=== PATIENT | male | born 1980 | race Caucasian/White ===

== ENCOUNTER 2020-09-03 13:16 | Outpatient (REF) | payer MEDICAID, SELFPAY | END 2020-09-03 13:17 | disposition home or self-care (01) | LOC: HO.LAB 13:16 | PROVIDERS: Visit Provider Internal Medicine | DX: Z20.828 Contact with and (suspected) exposure to other viral communicable diseases (principal) | CPT/HCPCS: U0003 ==

== ENCOUNTER 2020-09-09 09:51 | Outpatient (REF) | payer MEDICAID, SELFPAY | END 2020-09-09 09:52 | disposition home or self-care (01) | LOC: HO.LAB 09:51 | PROVIDERS: Visit Provider Internal Medicine | DX: Z20.828 Contact with and (suspected) exposure to other viral communicable diseases (principal) | CPT/HCPCS: C9803; U0003 ==

== ENCOUNTER 2020-09-16 08:58 | Outpatient (REF) | payer MEDICAID, SELFPAY | END 2020-09-16 08:59 | disposition home or self-care (01) | LOC: HO.LAB 08:58 | PROVIDERS: Visit Provider Internal Medicine | DX: Z20.828 Contact with and (suspected) exposure to other viral communicable diseases (principal) | CPT/HCPCS: C9803; U0003 ==

== ENCOUNTER 2020-10-08 14:20 | Emergency (ER) | payer MEDICAID, SELFPAY ==
[2020-10-08 14:35] VITALS: BP 132/58; PULSE 93; RESP 18; TEMP 36.7; O2SAT 99; BMI 39.0
--- NOTE | 2020-10-08 14:49 | ED_ITS ---
HPI - General Adult General Chief complaint: Extremity Injury, Lower Stated complaint: PROBLEMS WITH VEINS IN LEGS Time Seen by Provider: 10/08/20 14:47 Source: patient Mode of arrival: ambulatory Limitations: no limitations History of Present Illness HPI narrative: 40 y/o male with history of varicose veins, depression, hx back pain, hx substance abuse presents with acute on chronic LE pain. He reports he is followed by a Vascular Surgeon at [facility]. He reports for the last week he has had severe left thigh cramping that wakes him up at night and had him rolling around on the floor. He also reports left Achilles tendon pain, denies trauma. He had ultrasound of the leg ?2 months ago per his report. He is not on diuretics and denies N/V/D. He report significant weight gain in the last year, >100lbs since being started on a new antidepressant. MD complaint: leg pain Onset (ago): week(s) Location: lower extremity Radiation: non-radiation Severity: severe Severity scale (1-10): 10 Quality: burning and aching Pain Consistency: intermittent Relieving factors: none Exacerbating factors: rest (only occurs at night, severe cramping of upper leg) Associated symptoms: denies other symptoms Treatments prior to arrival: none Related Data Allergies Allergy/AdvReac Type Severity Reaction Status Date / Time trazodone [TRAZODONE] Allergy Unknown SWELLING Unverified 07/22/20 15:15 Review of Systems Review of Systems: Constitutional: No Fever, No Chills ENT/Mouth: No sore throat, No Rhinorrhea, No Swallowing Difficulty Eyes: No Eye Pain, No Swelling, No Redness Cardiovascular: No Chest Pain, No SOB, No Orthopnea, +Edema Respiratory: No Cough, No Sputum, No Wheezing, + dyspnea (x months due to weight gain) Gastrointestinal: No Nausea, No Vomiting, No Diarrhea, No abdominal Pain Genitourinary: No Dysuria, No Urinary Frequency, No Hematuria Musculoskeletal: + joint pain, + Myalgias Skin:+o Skin Lesions, No rash Neuro: No Weakness, No Numbness, No Dizziness, No Headache Psych: + Anxiety/Panic, + Depression Heme/Lymph: No Bruising, No Lymphadenopathy Endocrine: No Polyuria, No Polydipsia PMFSH Past Medical History Attestation statement: The following information was validated with the patient. Medical History (Updated 10/08/20 @ 17:44 by LONNIE Leung) Depression Obesity Varicose veins of both lower extremities Social History Social History Advance Directives: No Advance Directives Information Provided: Yes Physical Exam Vital Signs: Vital Signs: Last Vital Signs Temp 98.0 F 10/08/20 14:35 Pulse 93 10/08/20 14:35 Resp 18 10/08/20 14:35 BP 132/58 L 10/08/20 14:35 Pulse Ox 99 10/08/20 14:35 Body Mass Index 39.0 Appearance: Alert. Oriented X3. No acute distress. Eyes: Pupils equal, round and reactive to light. ENT: Pharynx normal. Neck: Normal inspection. Neck supple. CVS: Normal heart rate and rhythm. Pulses normal. Respiratory: No respiratory distress. Breath sounds normal. Abdomen: Obese, Soft and nontender. +BS x4 Skin: Skin warm and dry. Extremities: 1+ LE edema, small superficial varicose veins of bilateral lower legs, left leg with tenderness over veins, tender quadriceps muscle, tender Achilles tendon, negative Galvan's test Neuro: Oriented X 3. No motor deficit. No sensory deficit. Course Course Course Narrative: 40 y/o male with acute on chronic leg pain and muscle cramping. Will assess for metabolic derrangement, dehydration and DVT. Reevaluation(s) Reevaluation #1: LE doppler: 1. No DVT demonstrated in the left lower extremity 2. Varicose veins calf. No superficial thrombophlebitis. Labs pending. Reevaluation #2: Labs unremarkable, mild dehydration with BUN 18. This could be the cause of his muscle cramping. He was counseled on this and importance of increasing fluid intake. He will f/u with PCP and vascular. Stable for d/c. Medical Decision Making Lab Data Result diagrams: 10/08/20 16:53 10/08/20 16:53 Labs: Lab Results 10/08/20 10/08/20 Range/Units 16:53 16:53 WBC 11.7 H (4.8-10.8) X10*3/uL RBC 4.82 (4.60-5.80) X10*6/uL Hgb 13.6 L (14.0-18.0) g/dl Hct 42.4 (42-52) % MCV 88.0 (80-98) fL MCH 28.2 (27.0-33.0) pg MCHC 32.1 (31.0-36.0) g/dl RDW 12.1 (11.0-16.0) % Plt Count 343 (160-400) X10*3/uL MPV 8.9 L (9.4-12.4) fL Immature Gran % (Auto) 0.3 (0.0-0.4) % Neut % (Auto) 67.1 (45-73) % Lymph % (Auto) 24.0 (20-40) % [place] % (Auto) 6.2 (2-11) % Eos % (Auto) 1.7 (0-4) % Baso % (Auto) 0.7 (0-2) % Lymph # (Auto) 2.8 (1.2-4.9) X10*3/uL [place] # (Auto) 0.7 (0.1-1.2) X10*3/uL Eos # (Auto) 0.2 (0.0-0.4) X10*3/uL Baso # (Auto) 0.1 (0.0-0.2) X10*3/uL Abs Immat Gran (auto) 0.04 H (0.00-0.03) X10*3/uL Absolute Neuts (auto) 7.9 (2.0-8.3) X10*3/uL Absolute Nucleated RBC 0.000 (0.0-0.012) X10*3/uL Nucleated RBC % (auto) 0.0 (0.0-0.2) /100WBC Sodium 138 (135-145) mmol/L Potassium 4.9 (3.3-5.1) mmol/l Chloride 103 (96-108) mmol/L Carbon Dioxide 27 (22-29) mmol/L Anion Gap 13 (12-20) BUN 18 H (9-16) mg/dL Creatinine 0.80 (0.5-1.4) mg/dL Estim Creat Clear Calc 164.9 Estimated GFR > 60 Random Glucose 95 (60-115) mg/dL Calcium 9.9 (8.4-10.2) mg/dL Magnesium 2.0 (1.6-2.6) mg/dL Total Creatine Kinase 87 (38-174) U/L TSH 0.43 (0.32-4.0) mIU/mL Critical Care Time Critical Care Time Critical Care Time: No Discharge Plan Discharge Clinical Impression: Cramp in muscle, Dehydration Varicose veins of both lower extremities Qualifiers: Varicose vein complication: pain Qualified Code(s): I83.813 - Varicose veins of bilateral lower extremities with pain Patient Disposition: Home, Self-Care Instructions: Dehydration (ED), Leg Cramps (ED) Additional Instructions: Your labs today showed mild dehydration, recommend increasing your water intake throughout the day. All of your electrolytes were normal as well as your thyroid hormone. Ultrasound of your leg did not show any deep clots. Tonic water can help with muscle cramping, try drinking this before bed. Follow up with your doctor as well as your Vascular Surgeon.
--- NOTE | 2020-10-08 15:00 | US_ITS ---
EXAMINATION: US VENOUS ULTRASOUND WITH DOPPLER LOWER EXTREMITY, LEFT CLINICAL INFORMATION: Painful varicose veins, or edema. Assess for occult DVT. COMPARISON: None TECHNIQUE: Ultrasound of the deep veins is performed from the hip to the calf with compression sonography and color and pulse Doppler assessment. Spectral analysis with color-flow imaging is performed. FINDINGS: There is normal venous compression and respiratory variation and augmented flow. The visualized common femoral vein, superficial femoral vein, profunda femoral vein, popliteal vein, and the trifurcation region shows no evidence of deep venous thrombosis. There is no popliteal fossa cyst. There are varicose veins demonstrated in the medial calf. These are compressible and show intraluminal color flow. No superficial thrombophlebitis. No localized edema tracking in soft tissue planes. Incidental inguinal node present with normal alma architecture and short axis dimension 0.8 cm. US/US venous duplex LE IMPRESSION: 1. No DVT demonstrated in the left lower extremity. 2. Varicose veins calf. No superficial thrombophlebitis.
[2020-10-08 16:00] VITALS: PULSE 77; RESP 16; O2SAT 96
[2020-10-08 16:58] LABS: MANUAL DIFF FLAG NO
[2020-10-08 17:03] LABS: Basophils Absolute Auto 0.1 X10*3/uL (0.0-0.2); Basophils Percent Auto 0.7 % (0-2); Eosinophils Absolute Auto 0.2 X10*3/uL (0.0-0.4); Eosinophils Percent Auto 1.7 % (0-4); Hematocrit 42.4 % (42-52); Hemoglobin 13.6 g/dl (14.0-18.0); Imm Gran Abs Auto 0.04 X10*3/uL (0.00-0.03); Imm Gran Pct Auto 0.3 % (0.0-0.4); Lymphocytes Absolute Auto 2.8 X10*3/uL (1.2-4.9); Mean Corpuscular HGB Conc 32.1 g/dl (31.0-36.0); Mean Corpuscular Hemoglobin 28.2 pg (27.0-33.0); Mean Platelet Volume 8.9 fL (9.4-12.4); Monocytes Absolute Auto 0.7 X10*3/uL (0.1-1.2); Monocytes Percent Auto 6.2 % (2-11); Neutrophils Absolute Auto 7.9 X10*3/uL (2.0-8.3); Neutrophils Percent Auto 67.1 % (45-73); Platelet Count 343 X10*3/uL (160-400); Red Blood Count 4.82 X10*6/uL (4.60-5.80); Red Cell Distribution Width 12.1 % (11.0-16.0); White Blood Count 11.7 X10*3/uL (4.8-10.8)
[2020-10-08 17:21] LABS: Anion Gap 13 (12-20); Blood Urea Nitrogen 18 mg/dL (9-16); Calcium 9.9 mg/dL (8.4-10.2); Carbon Dioxide 27 mmol/L (22-29); Chloride 103 mmol/L (96-108); Creatinine Clr Calc Pharmacy 164.9; Estimated Glomerular Filt Rate > 60; Glucose Random 95 mg/dL (60-115); Potassium 4.9 mmol/l (3.3-5.1); Sodium 138 mmol/L (135-145)
[2020-10-08 17:43] LABS: TSH reflex Free T4 0.43 mIU/mL (0.32-4.0)
== END 2020-10-08 18:14 | disposition home or self-care (01) ==
PROVIDERS: Physician Assistant; Emergency Provider Emergency Medicine; PCP Nurse Practitioner Family
DX: I83.813 Varicose veins of bilateral lower extremities with pain (principal); R25.2 Cramp and spasm; E86.0 Dehydration
CPT/HCPCS: 36415; 80048; 82550; 83735; 84443; 85025; 93971; 99284

== ENCOUNTER 2020-11-09 12:11 | Outpatient (REF) | payer MEDICAID, SELFPAY | END 2020-11-09 12:12 | disposition home or self-care (01) | LOC: HO.LAB 12:11 | PROVIDERS: PCP Nurse Practitioner Family; Visit Provider Internal Medicine | DX: Z20.828 Contact with and (suspected) exposure to other viral communicable diseases (principal) | CPT/HCPCS: 36415; C9803; U0003 ==

== ENCOUNTER 2022-05-25 12:29 | Outpatient (RCR) | payer OTHER, SELFPAY | END 2022-05-26 10:15 | disposition home or self-care (01) | LOC: HO.PHPA 12:29 | PROVIDERS: Visit Provider Psychiatry & Neurology Psychiatry | DX: F33.2 Major depressive disorder, recurrent severe without psychotic features (principal); F43.12 Post-traumatic stress disorder, chronic; F41.1 Generalized anxiety disorder; F11.20 Opioid dependence, uncomplicated; F10.21 Alcohol dependence, in remission | CPT/HCPCS: 90791 ==

== ENCOUNTER 2025-05-18 10:15 | Outpatient (RCR) | payer OTHER, SELFPAY | END 2025-07-14 16:16 | disposition home or self-care (01) | LOC: HO.WCC 10:15 | PROVIDERS: Visit Provider Colon & Rectal Surgery | DX: I87.333 Chronic venous hypertension (idiopathic) with ulcer and inflammation of bilateral lower extremity (principal); L97.822 Non-pressure chronic ulcer of other part of left lower leg with fat layer exposed; L97.812 Non-pressure chronic ulcer of other part of right lower leg with fat layer exposed; Q82.0 Hereditary lymphedema; I73.9 Peripheral vascular disease, unspecified; Z87.891 Personal history of nicotine dependence; Z86.19 Personal history of other infectious and parasitic diseases | CPT/HCPCS: 29581; 97597; 99213; 99214 ==